=== PATIENT | female | born 1980 | race African-American/Black ===

== ENCOUNTER 2024-10-19 07:58 | Day surgery (SDC) | payer BC ==
[2024-10-18 10:09] VITALS: BMI 29.9
[2024-10-19 09:28] VITALS: RESP 18; TEMP 97
[2024-10-19 09:36] VITALS: BP 119/67; PULSE 59
== END 2024-10-19 09:59 | disposition home or self-care (01) ==
LOC: FASU-ENDO 07:58
PROVIDERS: ATTEND Internal Medicine Gastroenterology
PROC: 0DJD8ZZ Inspection of Lower Intestinal Tract, Via Natural or Artificial Opening Endoscopic (ICD-10-PCS; principal; 2024-10-19 09:04)
DX: Z12.11 Encounter for screening for malignant neoplasm of colon (principal)
CPT/HCPCS: 81025